=== PATIENT | female | born 1995 | race African-American/Black ===

== ENCOUNTER 2017-06-10 11:00 | Emergency (ER) | payer SELFPAY ==
[2017-06-10 11:15] LABS: URINE HCG POC HCG NEGATIVE (Negative)
[2017-06-10 11:16] LABS: BILIRUBIN,URINE NEGATIVE (NEG); CLARITY,URINE CLEAR; COLOR,URINE YELLOW; GLUCOSE,URINE NEGATIVE (NEG); NITRITE,URINE NEGATIVE (NEG); PH,URINE 5.5; PROTEIN,URINE NEGATIVE (NEG-TRACE); UROBILINOGEN,URINE 0.2 mg/dL (0.2 mg/dL)
[2017-06-10 11:24] LABS: BACTERIA,URINE FEW /HPF (0-FEW)
[2017-06-10 11:25] LABS: SQUAMOUS EPITHELIAL CELL,UR FEW /LPF
== END 2017-06-10 12:00 | disposition home or self-care (01) ==
LOC: ER 11:00
DX: N39.0 Urinary tract infection, site not specified (principal); Z32.02 Encounter for pregnancy test, result negative; Z90.49 Acquired absence of other specified parts of digestive tract; Z88.5 Allergy status to narcotic agent
CPT/HCPCS: 81001; 81025; 87086; 99284